=== PATIENT | female | born 1955 | race Native Hawaiian/Other Pacific Islander ===

== ENCOUNTER 2021-03-04 15:42 | Outpatient (CLI) | payer OTHER ==
[2021-03-04 15:52] LABS: PLATELET COUNT 242 K/uL (152-353)
== END 2021-03-04 22:46 | disposition home or self-care (01) ==
LOC: LAB 15:42
PROVIDERS: ATTEND Nurse Practitioner Family
DX: Z11.59 Encounter for screening for other viral diseases (principal); R63.5 Abnormal weight gain; R61 Generalized hyperhidrosis; R53.83 Other fatigue; R68.82 Decreased libido
CPT/HCPCS: 80053; 82306; 82607; 83001; 84403; 84439; 84443; 84481; 85027; 86376; 86769

== ENCOUNTER 2021-04-10 16:12 | Outpatient (CLI) | payer OTHER | END 2021-04-10 19:17 | disposition home or self-care (01) | LOC: LAB 16:12 | PROVIDERS: ATTEND Nurse Practitioner Family | DX: R68.82 Decreased libido (principal); R53.82 Chronic fatigue, unspecified; R63.5 Abnormal weight gain; Z09 Encounter for follow-up examination after completed treatment for conditions other than malignant neoplasm | CPT/HCPCS: 82670; 83001; 84403 ==